=== PATIENT | male | born 1955 | race Asian ===

== ENCOUNTER 2023-07-27 17:25 | Emergency (ER) | payer SELFPAY | END 2023-07-27 19:00 | disposition home or self-care (01) | LOC: ERS 17:25 | DX: S01.01XA Laceration without foreign body of scalp, initial encounter (principal); I10 Essential (primary) hypertension; Z79.82 Long term (current) use of aspirin; Z79.899 Other long term (current) drug therapy; W22.8XXA Striking against or struck by other objects, initial encounter | CPT/HCPCS: 12001; 99282 ==

== ENCOUNTER 2023-08-04 16:06 | Emergency (ER) | payer SELFPAY | END 2023-08-04 17:32 | disposition home or self-care (01) | LOC: ERS 16:06 | DX: S01.01XD Laceration without foreign body of scalp, subsequent encounter (principal); Z48.00 Encounter for change or removal of nonsurgical wound dressing; I10 Essential (primary) hypertension; W22.8XXD Striking against or struck by other objects, subsequent encounter; Z86.73 Personal history of transient ischemic attack (TIA), and cerebral infarction without residual deficits | CPT/HCPCS: 99282 ==